=== PATIENT | female | born 1945 | race Caucasian/White ===

== ENCOUNTER 2018-03-16 09:07 | Inpatient (IN) | payer MEDICARE, BC, OTHER ==
[~2018-03-16] VITALS: Ht 162.6 cm; Wt 52.2 kg
[2018-03-16 12:00] VITALS: BP 169/72
--- NOTE | 2018-03-16 12:00 | NUR ---
Pre-admission Note: Pt is a 73F, AOx4. Pt is being admitted with family present. Pt is manic, hyper-vigilant and unable to sit still. Pt is expressing severe anxiety and agitation regarding her admission process. Pt stated she is here to be detoxed off of Ambien. Pt was educated on policies and procedures of the unit. Pt verbalized understanding. Will admit to [facility].
--- NOTE | 2018-03-16 12:10 | NUR ---
Admission Note: Pt is 73F, admitted to [facility] at 1210 for Benzo-Hypnotic and ETOH withdrawal. Pt arrived into the intake office with family. Pt is manic, hyper-vigilant and unable to sit still. Pt is expressing severe anxiety and agitation regarding her admission process. Pt stated this is how I feel when I dont take my Ambien. Tete been off Ambien for more than a day now. Pt states the follow substance history: 1. Ambien: Pt uses 40-100mg of Ambien HS for sleep daily for the past 6 months. Pt stated she takes 40mg of Ambien for sleep but wakes up and takes more, up to 100mg of Ambien. However, pt only takes 100mg of Ambien when needed, not all the time. Pt has used Ambien for the past 25 years. Pt last used 40mg Ambien on 03/14/18 at 2200. Pt has an Ambien prescription that she is able to fill in [facility] three at a time. 2. Lunesta: Pt uses 3-6mg of Lunesta HS for sleep daily for the past 6 months. Pt has used Lunesta for the past 25 years. Pt last used 6mg of Lunesta on 03/14/18 at 2200. Pt has a prescription for Lunesta that she fills locally. 3. Wine (red or white): Pt drinks of a wine glass daily 1-3x a week during dinner. Pt stated she has been drinking wine for a long time. Pt stated she last drank red wine on 03/14/18. Pt was minimizing her substance history during assessment but was corrected by her daughter. Pt initially stated that she was taking 20mg of Ambien but the daughter clarified that she was taking more. Pt then confessed using the reported but reported that she never had any adverse effects from taking too much (eg. Blackouts). Pt stated that she went to [facility] to be sober from Ambien and Lunesta. Pts motivation to be sober is that shes doing it for her family. Pt stated Im only here because my daughter and significant other want me to be here. Pt reiterated that she was only taking Ambien for sleep. Pt reported she has never been sober from sleeping medication and has been taking them since she was a child. BP: 169/72 HR:84 T:97.8 RR:16 SpO2:96% Pain 0/10. Pulse regular. Respirations even and unlabored. Lung sounds clear bilaterally. Bowel sounds hypoactive x 4 quadrants. Skin intact. Pt is 115lbs and 54. Pt follows a protein diet at home. NKA. Pt states her primary care physician is Dr. Boland from [place], [place]. Pt reports medical hx of Insomnia, Hemorrhoids, early stage dementia, hypoactive digestion, and Hip surgery from a ligament tear. Pt takes supplemental medications to be reconciled by MD. Pt does not smoke cigarettes. Pt denies any suicidial ideations at this time. Bed in lowest position. Side rails up x2. Bed padded for safety. All needs attended and met. Call light functioning and within reach. Will continue to monitor.
[2018-03-16] MEDS ORDERED: DIAZEPAM 5 MG TABLET PO PRN (12:30)
[2018-03-16] MEDS ORDERED: ACETAMINOPHEN 325 MG TABLET PO PRN (12:30)
[2018-03-16] MEDS ORDERED: THIAMINE HCL 200 MG/2 ML VIAL IM ONE (12:30)
[2018-03-16] MEDS ORDERED: diphenhydrAMINE 50 MG CAPSULE PO PRN (12:30)
[2018-03-16] MEDS ORDERED: IBUPROFEN 600 MG TABLET PO PRN (12:30)
[2018-03-16] MEDS ORDERED: MAGNESIUM HYDROXIDE 30 ML LIQUID UDC PO PRN (12:30)
[2018-03-16] MEDS ORDERED: LOPERAMIDE HCL 2 MG CAPSULE PO PRN ×2 (12:30)
[2018-03-16] MEDS ORDERED: LORAZEPAM 2 MG/1 ML VIAL IM PRN (12:30)
[2018-03-16] MEDS ORDERED: DIAZEPAM 10 MG TABLET PO PRN ×2 (12:30)
[2018-03-16] MEDS ORDERED: MIRALAX 17 GM POWD.PACK PO PRN (12:30)
[2018-03-16] MEDS ORDERED: MAG HYDROX/AL HYDROX/SIMETH 30 ML LIQUID UDC PO PRN (12:30)
[2018-03-16] MEDS ORDERED: [UNRECOGNIZED DRUG - OTHER] (12:31)
[2018-03-16] MEDS ORDERED: BIOF1TAB7 PO (12:34)
[2018-03-16] MEDS ORDERED: [UNRECOGNIZED DRUG - REMARK] (12:34)
[2018-03-16] MEDS ORDERED: GLYC-16 RC (12:37)
[2018-03-16] MEDS ORDERED: PHEN1SUP42 RC (12:38)
[2018-03-16] MEDS ORDERED: IBUP200C92 PO (12:39)
--- NOTE | 2018-03-16 13:00 | NUR ---
CIWA CIWA 15. Pt noted with slight tremors, and severe anxiety and agitation.
[2018-03-16] MEDS ORDERED: CLONIDINE HCL 0.1 MG TABLET PO PRN (13:15)
[2018-03-16] MEDS ORDERED: GLYCERIN PEDIATRIC RECTAL SUPP EACH RC PRN (13:15)
[2018-03-16] MEDS ORDERED: GLYCERIN ADULT RECTAL SUPP EACH RC PRN (14:00)
[2018-03-16] MEDS ORDERED: 3 DAY TAPER OF VALIUM-SERENITY PROTOCOL PO PRN (14:00)
[2018-03-16 14:11] LABS: *AMPHETAMINE, URINE NEGATIVE (NEGATIVE); *BARBITURATE, URINE NEGATIVE (NEGATIVE); *CANNABINOID, URINE NEGATIVE (NEGATIVE); *COCCAINE, URINE NEGATIVE (NEGATIVE); *OPIATE, URINE NEGATIVE (NEGATIVE); *PHENCYCLIDINE SCREEN,URINE NEGATIVE (NEGATIVE)
[2018-03-16] MEDS: DIAZEPAM 10 MG TABLET PO SCH ×2 (14:47→20:36)
[2018-03-16 15:00] VITALS: BP 150/68
[2018-03-16 15:40] LABS: BASOPHILS % (AUTO) 0.7 % (0.0-2.0); EOSINOPHILS % (AUTO) 0.2 % (0.0-7.0); HEMATOCRIT 33.5 % (31.2-41.9); HEMOGLOBIN 11.4 g/dL (10.9-14.3); LYMPHOCYTES # (AUTO) 1.3 K/uL (20.0-40.0); LYMPHOCYTES % (AUTO) 21.2 % (20.5-51.5); MEAN CORPUSCULAR HEMOGLOBIN 31.6 uug (24.7-32.8); MEAN CORPUSCULAR HGB CONC 34 g/dL (32.3-35.6); MEAN CORPUSCULAR VOLUME 92.9 fL (75.5-95.3); MONOCYTES # (AUTO) 0.4 K/uL (2.0-10.0); MONOCYTES % (AUTO) 6.6 % (0.0-11.0); NEUTROPHILS # (AUTO) 4.3 K/uL (1.8-8.9); NEUTROPHILS % (AUTO) 71.3 % (38.5-71.5); PLATELET COUNT (AUTO) 375 K/uL (179-408); RED BLOOD CELL COUNT(AUTO) 3.61 MIL/uL (3.63-4.92)
[2018-03-16 15:57] LABS: ALANINE AMINOTRANSFERASE 27 U/L (14-59); ALKALINE PHOSPHATASE 94 U/L (50-136); AMYLASE 75 U/L (25-115); ASPARTATE AMINOTRANSFERASE 14 U/L (15-37); BILIRUBIN,TOTAL 0.3 mg/dL (0.2-1.0); CARBON DIOXIDE 27 mmol/L (21-32); CHLORIDE 105 mmol/L (98-107); CREATININE 0.6 mg/dL (0.6-1.3); GLUCOSE 104 mg/dL (74-106); LIPASE 216 U/L (73-393); MAGNESIUM 2.1 mg/dL (1.8-2.4); POTASSIUM 3.6 mmol/L (3.5-5.1); TOTAL PROTEIN, SERUM 6.8 g/dL (6.4-8.2); UREA NITROGEN, BLOOD 8 mg/dL (7-18)
[2018-03-16 16:00] VITALS: BP 147/69
--- NOTE | 2018-03-16 16:00 | NUR ---
CIWA: CIWA 15. Pt noted with severe anxiety/agitation. Pt noted with slight tremor and slight sweating.
[2018-03-16 16:08] LABS: ETHANOL < 3 MG/DL (0-0)
--- NOTE | 2018-03-16 16:21 | NUR ---
CIWA and PRN Valium CIWA 15. Pt noted with slight tremors, anxiety and agitation. 10mg Valium PRN as ordered. Will continue to monitor.
[2018-03-16] MEDS ORDERED: TRAZODONE 50 MG TABLET PO ONE (16:53)
[2018-03-16] MEDS ORDERED: TRAZODONE 50 MG TABLET PO PRN (17:00)
--- NOTE | 2018-03-16 17:21 | NUR ---
Valium Reassessment: Pt stated she feels the same but a little less anxious. CIWA remains the same at 15. Will continue to monitor.
--- NOTE | 2018-03-16 19:11 | NUR ---
PRN MILK OF MAGNESIA 30 ML/1 UNIT PO ADMINISTRATION The patient c/o constipation. PRN Milk of Magnesia 30 ml PO administrated with full glass of water as ordered. Patient tolerated well. Safe and calm environment with minimized noises was provided. All needs met. Safety measures: Call light within reach, bed locked in the lowest position, and padded rails up x2. Will continue to monitor closely.
--- NOTE | 2018-03-16 19:16 | NUR ---
START OF SHIFT NOTE: Endorsed patient, 73 year old female, is on 3 Valium Taper (today is day 1), ordered for Ambien withdrawal. The patient tolerated well. The patient remains compliant with treatment, medications, and diet regime. Withdrawal symptoms will be closely monitored. Upon endorsement, patient is alert and oriented x4, ambulatory with steady gait, soft and clear speech, anxious mood and labile affect. Encouraged to express his feelings. Reassuring provided. CIWA=15 at 1600: patient c/o anxiety, agitation, nervousness, irritability, sweating, tremors, restlessness, and fatigue. Encouraged to fluids intake as tolerated. Encouraged to attending group activities. Safe and calm environment with minimized noises was provided. All needs met. Safety measures: Call light within reach, bed is locked in lowest position, and padded bed rails up bilaterally. Patient endorsed by outgoing day shift nurse. Will continue to monitor closely.
--- NOTE | 2018-03-16 19:16 | NUR ---
End of Shift Note: Report given to shift superintendent caustic cresylate nurse. Pt was admitted today and was seen by MD and Psychiatrist. Pt was placed on 3-day Valium taper to manage withdrawals from Ambien. Last CIWA was 15 at 1600. Pt c/o increased withdrawal symptoms. Valium PRN given as ordered. Pt is currently experiencing problems with inability to sleep. Psychiatrist aware with new orders for Trazodone ONE TIME and HSPRN. Trazodone given and shift superintendent caustic cresylate to given HSPRN dose. Pt required constant redirection during shift. Pt had multiple demands regarding her care which were all met. Bed in lowest position. Side rails up x2. Call light functioning and within reach. All needs attended and met.
[2018-03-16 20:00] VITALS: BP 118/76
--- NOTE | 2018-03-16 20:00 | NUR ---
CIWA ASSESSMENT CIWA=14 at 2000: Patient presented with withdrawal symptom such as anxiety, agitation, nervousness, irritability, barely sweating, headache "6/10", restlessness, tremors, and fatigue. Safe and calm environment with minimized noises was provided. All needs met. Safety measures: Call light within reach, bed is locked in lowest position, and padded bed rails up bilaterally. Will continue to monitor closely.
--- NOTE | 2018-03-16 20:28 | NUR ---
PRN BENADRYL 50 MG 1 CAPSULE PO ADMINISTRATION. PRN Benadryl 50 mg PO administrated for insomnia at 2027 with full glass of water, as ordered. Patient tolerated well. Safe and calm environment with minimized noises was provided. All needs met. Safety measures: Call light within reach, bed locked in the lowest position, and padded rails up x2. Will continue to monitor closely. Will continue to monitor closely.
--- NOTE | 2018-03-16 20:28 | NUR ---
PRN DESYREL(TRAZODONE) 50 MG PO ADMINISTRATION. PRN Desyrel (Trazodone)l 50 mg PO administrated for insomnia at 2027 with full glass of water, as ordered. Patient tolerated well. Safe and calm environment with minimized noises was provided. All needs met. Safety measures: Call light within reach, bed locked in the lowest position, and padded rails up x2. Will continue to monitor closely.
--- NOTE | 2018-03-16 20:36 | NUR ---
PRN TYLENOL 650 MG PO ADMINISTRATION. PRN Tylenol 650 mg PO administrated for headache "6/10" at 2035 with full glass of water, as ordered. Patient tolerated well. Safe and calm environment with minimized noises was provided. All needs met. Safety measures: Call light within reach, bed locked in the lowest position, and padded rails up x2. Will continue to monitor closely.
--- NOTE | 2018-03-16 21:28 | NUR ---
PRN BENADRYL PO RE-ASSESSMENT Patient does not sleeping. PRN Benadryl 50 mg PO administrated for insomnia at 2045 was non effective. Safe and calm environment with minimized noises was provided. All needs met. Safety measures: Call light within reach, bed locked in the lowest position, and padded rails up x2. Will continue to monitor closely.
--- NOTE | 2018-03-16 21:28 | NUR ---
PRN TRAZODONE PO RE-ASSESSMENT Patient does not sleeping. PRN Desyrel (Trazodone)l 50 mg PO administrated for insomnia at 2027 was non effective. Safe and calm environment with minimized noises was provided. All needs met. Safety measures: Call light within reach, bed locked in the lowest position, and padded rails up x2. Will continue to monitor closely.
--- NOTE | 2018-03-16 21:36 | NUR ---
PRN TYLENOL PO RE-ASSESSMENT Patient reports," Tylenol not help to me, and headache not decreased. My headache "03/20" now". PRN Tylenol 650 mg PO administrated for headache "01/18" at 2035 was non effective. Safe and calm environment with minimized noises was provided. All needs met. Safety measures: Call light within reach, bed locked in the lowest position, and padded rails up x2. Will continue to monitor closely.
--- NOTE | 2018-03-16 21:48 | NUR ---
PRN MOTRIN 600 MG PO ADMINISTRATION. PRN Motrin 600 mg PO administrated for headache "8/10" at 2148 with full glass of water, as ordered. Patient tolerated well. Safe and calm environment with minimized noises was provided. All needs met. Safety measures: Call light within reach, bed locked in the lowest position, and padded rails up x2. Will continue to monitor closely.
--- NOTE | 2018-03-16 22:48 | NUR ---
PRN MOTRIN RE-ASSESSMENT Patient reports, that "headache decreased from "8/10" to "5/10". PRN Motrin 600 mg PO administrated for headache "8/10" at 2148 was effective. Safe and calm environment with minimized noises was provided. All needs met. Safety measures: Call light within reach, bed locked in the lowest position, and padded rails up x2. Will continue to monitor closely.
--- NOTE | 2018-03-16 23:00 | NUR ---
NURSING NOTE Patient c/o increased anxiety, "shaking and insomnia". Patient asked Ambien"I can't immediately be without Ambien, that I have taken for a long time, 40 mg every day. I do not want Valium and any other meds". Risks and Benefits explained to patient, but she refused to take any medications.
[2018-03-16] MEDS ORDERED: HYDROXYZINE PAMOATE 25 MG CAPSULE PO ONE (23:30)
[2018-03-16 23:59] VITALS: BP 123/64
--- NOTE | 2018-03-16 23:59 | NUR ---
AMA NOTE Patient stated that she wanted to leave AMA d/t disagree with ordered Valium taper. Patient educated about the risks and consequences of leaving AMA, patient verbalized understanding but still requested to leave. Multiple staff members spoke with patient without any success. VS: T:98'1, HR:91, BP: 123/64, RR:19, RA O2 SAT:95, headache"4/10". Patient denies any suicidal/homicidal ideations,, skin intact. Doctor MD Jean notified. Patient was given list community resources in case she in need to help. Patient left the facility on 03/16/2018 at 2359. Addendum: 03/17/18 at 0542 by LETY TUCKER RN Additional: Pt was A&Ox4. Pt stated, "I will call a cab or I'll ask security to call me a cab." Pt verbalized that she has a spare antoine at home to get inside and give cab worker the money. Pt stated, "I know I'm leaving against medical advice...I just want to go home because I feel this Valium taper is not right for me, I need to be tapered off of Ambien only."
[2018-03-17] MEDS ORDERED: LIPO FLAVONOID PLUS PO SCH (09:00)
[2018-03-17] MEDS ORDERED: MULTIVITAMINS,THERAPEUTIC TABLET PO SCH (09:00)
[2018-03-17] MEDS ORDERED: FOLIC ACID 1 MG TABLET PO SCH (09:00)
[2018-03-17] MEDS ORDERED: THIAMINE HCL 100 MG TABLET PO SCH (09:00)
[2018-03-17] MEDS ORDERED: DIAZEPAM 5 MG TABLET PO SCH (09:00)
[2018-03-17] MEDS ORDERED: TUBERCULIN,PURIF.PROT.DERIV. 5 TU/0.1 ML TEST ID ONE (09:00)
[2018-03-18 08:06] LABS: HEPATITIS B SURFACE AG Negative (Negative)
[2018-03-18] MEDS ORDERED: DIAZEPAM 5 MG TABLET PO SCH (09:00)
== END 2018-03-16 23:59 | disposition left against medical advice (07) | DRG 894 ==
LOC: SRC 10:52
PROVIDERS: ADMIT Family Medicine Addiction Medicine; ATTEND Family Medicine Addiction Medicine
PROC: HZ2ZZZZ Detoxification Services for Substance Abuse Treatment (ICD-10-PCS; principal; 2018-03-16)
DX: F13.239 Sedative, hypnotic or anxiolytic dependence with withdrawal, unspecified (principal); F03.90 Unspecified dementia, unspecified severity, without behavioral disturbance, psychotic disturbance, mood disturbance, and anxiety; G47.00 Insomnia, unspecified; F41.9 Anxiety disorder, unspecified
CPT/HCPCS: 80307; 83690; 83735; 85025; 86592; 86705; 86803; 87340; 87806; A4663; G0480; Q0163